=== PATIENT | male | born 1960 | race Caucasian/White ===

== ENCOUNTER → 2019-07-12 | Outpatient (CLI) | payer OTHER ==
--- NOTE | 2019-07-12 17:11 | REP ---
LEFT KNEE, FIVE VIEWS: Five views of the left knee performed. There is no acute fracture or dislocation. There is mild medial joint space narrowing and subchondral sclerosis. There is mild spurring of the tibial spines. There is a small joint effusion. IMPRESSION: No acute fracture or dislocation. Small joint effusion. Mild degenerative changes. Electronically Signed by Yobani Yepez MD 07/13/2019 04:32 P
== END ==
LOC: M LRY 14:54
PROVIDERS: ATTEND Nurse Practitioner Family
DX: S89.92XA Unspecified injury of left lower leg, initial encounter (principal); X58.XXXA Exposure to other specified factors, initial encounter; Y92.89 Other specified places as the place of occurrence of the external cause

== ENCOUNTER 2020-07-27 12:51 | Emergency (ER) | payer OTHER ==
[~2020-07-27] VITALS: Ht 175.3 cm; Wt 104.1 kg
[2020-07-27] MEDS ORDERED: ATOR1TAB21 PO (13:00)
[2020-07-27] MEDS ORDERED: ATEN50TA2 PO (13:00)
[2020-07-27] MEDS ORDERED: LISI-538 PO (13:00)
[2020-07-27] MEDS ORDERED: METF-877 PO (13:00)
[2020-07-27] MEDS ORDERED: NS 1,000 ML IV ONE (13:15)
[2020-07-27] MEDS ORDERED: KETOROLAC 30 MG/ML 1ML VIAL IV ONE (13:15)
--- NOTE | 2020-07-27 13:40 | REPVR ---
PROCEDURE INFORMATION: Exam: CT Abdomen And Pelvis Without Contrast Exam date and time: 07/27/2020 1:17 PM Age: 60 years old Clinical indication: Abdominal pain; Localized; Left; Additional info: L flank pain with HX of kidney stones TECHNIQUE: Imaging protocol: Computed tomography of the abdomen and pelvis without contrast. Radiation optimization: All CT scans at this facility use at least one of these dose optimization techniques: automated exposure control; mA and/or kV adjustment per patient size (includes targeted exams where dose is matched to clinical indication); or iterative reconstruction. COMPARISON: No relevant prior studies available. FINDINGS: Limitations: Evaluation is somewhat limited by lack of IV contrast. Lungs: The visualized lung bases demonstrate minor dependent atelectasis. Liver: Large, fatty liver. Gallbladder and bile ducts: No gallstones are evident, but ultrasound would be more sensitive. No gross biliary ductal dilatation. Pancreas: Grossly unremarkable. Spleen: Grossly unremarkable. Adrenals: Grossly unremarkable. Kidneys and ureters: Very mild left-sided hydroureteronephrosis secondary to a 2 x 1 x 1 mm stone in the distal left ureter, approximately 1.6 cm proximal to the ureterovesical junction. There is no right-sided hydronephrosis or stone. The right kidney contains a 2.5 cm simple cyst, which does not require follow-up, and the kidneys appear otherwise grossly unremarkable. Stomach and bowel: The unopacified small bowel is not significantly distended to suggest obstruction. Mild to moderate diverticulosis involves much of the large bowel, without evidence for diverticulitis. Appendix: The appendix appears normal. Intraperitoneal space: No free air or significant free fluid. Vasculature: The abdominal aorta is nonaneurysmal. Atherosclerotic vascular calcifications are noted. Lymph nodes: No gross pathologic lymphadenopathy. Urinary bladder: Grossly unremarkable. Reproductive: Unremarkable as visualized. Bones/joints: Degenerative changes involve the spine and hips. Soft tissues: Small fat containing umbilical hernia. Moderate right and small, partially visualized left fat containing inguinal hernias. IMPRESSION: 1. Very mild left-sided hydroureteronephrosis secondary to a 2 x 1 x 1 mm stone in the distal left ureter, approximately 1.6 cm proximal to the ureterovesical junction. 2. Large, fatty liver. 3. Mild to moderate colonic diverticulosis without evidence for diverticulitis. 4. Small fat containing umbilical hernia. 5. Moderate right and small, partially visualized left fat containing inguinal hernias. Electronically signed by: Arias Patel On 07/27/2020 13:39:56 PM
[2020-07-27 13:42] LABS: BASO % 0.2 % (0.0-1.0); EOS # 0.1 10^3/uL (0.0-0.5); HEMATOCRIT 46.1 % (42.0-52.0); HEMOGLOBIN 15.3 g/dl (13.5-17.5); LYMPH # 2.3 10^3/uL (1.5-5.0); LYMPH % 17.9 % (24.0-44.0); MEAN CORPUSCULAR HEMOGLOBIN 29.5 pg (27.0-33.0); MEAN CORPUSCULAR HGB CONC 33.2 g/dl (32.0-36.5); MEAN CORPUSCULAR VOLUME 88.8 fl (80.0-96.0); MONO # 1.3 10^3/uL (0.0-0.8); NEUTROPHILS # 8.9 10^3/uL (1.5-8.5); NEUTROPHILS % 70.6 % (36.0-66.0); PLATELET COUNT, AUTOMATED 256 10^3/uL (150-450); RED BLOOD COUNT 5.19 10^6/uL (4.30-6.10); WHITE BLOOD COUNT 12.6 10^3/uL (4.0-10.0)
[2020-07-27 14:13] LABS: ALBUMIN 3.9 GM/DL (3.2-5.2); BILIRUBIN,DIRECT 0.2 MG/DL (0.0-0.2); BILIRUBIN,TOTAL 0.6 MG/DL (0.2-1.0); CALCIUM LEVEL 9.1 MG/DL (8.5-10.1); CREATININE FOR GFR 1.35 MG/DL (0.70-1.30); GLOMERULAR FILTRATION RATE 57.6 (>56); POTASSIUM SERUM 4.5 MEQ/L (3.5-5.1); TOTAL PROTEIN 7.4 GM/DL (6.4-8.2)
[2020-07-27] MEDS ORDERED: FLOM0.4C39 PO (14:21)
[2020-07-27] MEDS ORDERED: KETO10TAB PO (14:21)
[2020-07-27 14:37] VITALS: BP 107/59
== END 2020-07-27 14:38 | disposition home or self-care (01) ==
LOC: M ED 12:51
DX: N13.2 Hydronephrosis with renal and ureteral calculous obstruction (principal); K76.0 Fatty (change of) liver, not elsewhere classified; K57.30 Diverticulosis of large intestine without perforation or abscess without bleeding; Z79.84 Long term (current) use of oral hypoglycemic drugs; Z79.899 Other long term (current) drug therapy
CPT/HCPCS: 74176; 80048; 80076; 81001; 83690; 85025; 96361; 96374; 99284; J1885

== ENCOUNTER → 2021-07-26 | Outpatient (CLI) | payer OTHER ==
[~2021-07-26] MED LIST: ATEN50TA2 PO; ATOR1TAB21 PO; FLOM0.4C39 PO; KETO10TAB PO; LISI20TA33 PO; METF-877 PO
--- NOTE | 2021-07-26 10:24 | REP ---
INDICATION: PAIN COMPARISON: None. TECHNIQUE: AP, lateral, bilateral oblique views left foot. FINDINGS: Generalized age-related changes are appreciated. Lateral view demonstrates small calcaneal heel spur and calcification at the calcaneal Achilles insertion. No overt arthritic degenerative changes are appreciated. No evidence for acute fracture or dislocation. No subcutaneous emphysema or foreign body. IMPRESSION: Essentially age-appropriate examination. No acute fracture or dislocation. <Electronically signed by Nadeem Alvarenga > 07/26/21 [id number]
== END ==
LOC: M WUC 09:44
PROVIDERS: ATTEND Physician Assistant
DX: M79.672 Pain in left foot (principal)

== ENCOUNTER → 2022-10-17 | Outpatient (REF) | payer OTHER | LOC: M LAB REF 12:18 | PROVIDERS: ATTEND Ophthalmology | DX: D23.10 Other benign neoplasm of skin of unspecified eyelid, including canthus (principal) ==

== ENCOUNTER 2023-04-08 09:09 | Emergency (ER) | payer OTHER ==
[~2023-04-08] VITALS: Ht 175.3 cm; Wt 99.6 kg
[2023-04-08] MEDS ORDERED: METF-838 (09:19)
[2023-04-08] MEDS ORDERED: AMLO2.5T3 (09:19)
[2023-04-08] MEDS ORDERED: ATOR40TA75 (09:19)
[2023-04-08] MEDS ORDERED: DULA3PEN (09:19)
[2023-04-08] MEDS ORDERED: KETOROLAC 30 MG/ML 1ML VIAL IV ONE (09:40)
[2023-04-08 09:58] LABS: BASO % 0.3 % (0.0-1.0); EOS # 0.2 10^3/uL (0.0-0.5); EOS % 1.9 % (0.0-3.0); HEMATOCRIT 48.7 % (42.0-52.0); HEMOGLOBIN 16.5 g/dl (13.5-17.5); LYMPH # 2.9 10^3/uL (1.5-5.0); LYMPH % 30.8 % (24.0-44.0); MEAN CORPUSCULAR HEMOGLOBIN 30.3 pg (27.0-33.0); MEAN CORPUSCULAR HGB CONC 33.9 g/dl (32.0-36.5); MEAN CORPUSCULAR VOLUME 89.4 fl (80.0-96.0); MONO # 0.9 10^3/uL (0.0-0.8); NEUTROPHILS # 5.5 10^3/uL (1.5-8.5); NEUTROPHILS % 57.8 % (36.0-66.0); PLATELET COUNT, AUTOMATED 250 10^3/uL (150-450); RED BLOOD COUNT 5.45 10^6/uL (4.30-6.10); WHITE BLOOD COUNT 9.5 10^3/uL (4.0-10.0)
[2023-04-08] MEDS ORDERED: KETO10TAB PO (12:37)
[2023-04-08] MEDS ORDERED: FLOM0.4C39 PO (12:37)
[2023-04-08 12:44] VITALS: BP 131/86; TEMP 97.8; O2SAT 97
== END 2023-04-08 12:47 | disposition home or self-care (01) ==
LOC: M ED 09:09
DX: N20.1 Calculus of ureter (principal); E11.9 Type 2 diabetes mellitus without complications; I10 Essential (primary) hypertension; Z87.442 Personal history of urinary calculi; E78.5 Hyperlipidemia, unspecified; Z79.899 Other long term (current) drug therapy; Z79.84 Long term (current) use of oral hypoglycemic drugs
CPT/HCPCS: 74176; 80047; 81001; 85025; 96374; 99284; J1885

== ENCOUNTER 2023-08-13 10:37 | Emergency (ER) | payer OTHER ==
[~2023-08-13] VITALS: Ht 175.3 cm; Wt 100.0 kg
[~2023-08-13 10:37] MED LIST changes: +AMLO2.5T3; +ATOR40TA75; +DULA3PEN; +METF-838
[2023-08-13] MEDS ORDERED: MELO7.5T35 PO (12:15)
[2023-08-13] MEDS ORDERED: MELOXICAM (MOBIC) 7.5 MG TAB PO ONE (12:20)
[2023-08-13 12:36] VITALS: BP 138/89; TEMP 98.2; O2SAT 95
[2023-08-14] MEDS ORDERED: MELOXICAM (MOBIC) 7.5 MG TAB PO SCH (09:00)
== END 2023-08-13 12:49 | disposition home or self-care (01) ==
LOC: M ED 10:37
DX: M17.12 Unilateral primary osteoarthritis, left knee (principal); I10 Essential (primary) hypertension; E11.9 Type 2 diabetes mellitus without complications; Z79.4 Long term (current) use of insulin; Z79.899 Other long term (current) drug therapy

== ENCOUNTER → 2023-10-27 | Outpatient (CLI) | payer OTHER ==
[~2023-10-27] MED LIST changes: +MELO7.5T35 PO
[2023-10-27 11:01] LABS: ALBUMIN 3.7 G/DL (3.2-5.2); ALKALINE PHOSPHATASE 72 U/L (46-116); ALT/SGPT 37 U/L (7.0-40); AST/SGOT 29 U/L (<34); BILIRUBIN,TOTAL 0.6 MG/DL (0.3-1.2); BLOOD UREA NITROGEN 15 MG/DL (9-23); CALCIUM LEVEL 8.8 MG/DL (8.3-10.6); CARBON DIOXIDE LEVEL 26 MMOL/L (20-31); CHLORIDE LEVEL 104 MMOL/L (98-107); CREATININE FOR GFR 0.71 MG/DL (0.70-1.30); GLOMERULAR FILTRATION RATE > 60.0 (>49); GLUCOSE, FASTING 124 MG/DL (74-106); POTASSIUM SERUM 4.4 MMOL/L (3.5-5.1); SODIUM LEVEL 137 MMOL/L (136-145); TOTAL PROTEIN 6.9 G/DL (5.7-8.2)
== END ==
LOC: M LAB 09:24
PROVIDERS: ATTEND Orthopaedic Surgery
DX: Z01.818 Encounter for other preprocedural examination (principal)

== ENCOUNTER 2024-01-19 10:21 | Day surgery (SDC) | payer OTHER ==
[~2024-01-19] VITALS: Ht 175.3 cm; Wt 99.3 kg
[~2024-01-19 10:21] MED LIST changes: +VITA100093 PO
[2024-01-19] MEDS ORDERED: LR 1,000 ML IV SCH (10:50)
[2024-01-19] MEDS: ceFAZolin SOD 2 GM in IV 1 EA IV ONE (13:27)
[2024-01-19] MEDS: HEPARIN SOD (PORCINE) 5000UNITS/ML 1ML VIAL/SYRINGE SQ ONE (13:33)
[2024-01-19] MEDS ORDERED: LIDOCAINE 2% 100MG/5ML SDV (FOR ANES.) As Ordered ONE (13:38)
[2024-01-19] MEDS ORDERED: ROCURONIUM BROMIDE 50MG/5ML VIAL As Ordered ONE (13:38)
[2024-01-19] MEDS ORDERED: fentaNYL 100 MCG/2 ML INJECTION As Ordered ONE (13:38)
[2024-01-19] MEDS ORDERED: SUGAMMADEX SODIUM 500 MG/5 ML VIAL (BRIDION) As Ordered ONE (13:38)
[2024-01-19] MEDS ORDERED: ONDANSETRON 4MG 2ML VIAL As Ordered ONE (13:38)
[2024-01-19] MEDS ORDERED: propofoL 200 MG/20 ML VIAL As Ordered ONE (13:38)
[2024-01-19] MEDS ORDERED: MIDAZOLAM INJ 2MG/2ML VIAL As Ordered ONE (13:38)
[2024-01-19] MEDS ORDERED: ACETAMINOPHEN 1000MG 100ML IV BAG As Ordered ONE (13:38)
[2024-01-19] MEDS ORDERED: KETOROLAC 60MG 2ML VIAL As Ordered ONE (13:54)
[2024-01-19] MEDS ORDERED: fentaNYL 100 MCG/2 ML INJECTION IV PRN (14:40)
[2024-01-19] MEDS ORDERED: ONDANSETRON 4MG 2ML VIAL IV PRN (14:40)
[2024-01-19] MEDS ORDERED: MORPHINE 2 MG/ML 1ML VIAL IV PRN (14:40)
[2024-01-19] MEDS: oxyCODONE 5MG TAB PO PRN (15:01)
[2024-01-19 15:34] VITALS: BP 126/75; TEMP 97.1; O2SAT 96
== END 2024-01-19 16:25 | disposition home or self-care (01) ==
LOC: M SDC 10:21
PROVIDERS: ATTEND Surgery
DX: K42.9 Umbilical hernia without obstruction or gangrene (principal); I10 Essential (primary) hypertension; E11.9 Type 2 diabetes mellitus without complications; E78.00 Pure hypercholesterolemia, unspecified; Z79.899 Other long term (current) drug therapy; Z79.84 Long term (current) use of oral hypoglycemic drugs; Z72.0 Tobacco use
CPT/HCPCS: 49591; C1781; J0131; J0665; J0690; J1100; J1885; J2250; J2405; J3010